=== PATIENT | female | born 2000 | race Caucasian/White ===

== ENCOUNTER 2024-11-01 03:37 | Emergency (ER) | payer OTHER, SELFPAY ==
[2024-11-01] VITALS (9 sets, daily range): BP systolic 107–129; BP diastolic 69–97; PULSE 60–72; TEMP 36.8; O2SAT 98–100; BMI 17.2
--- NOTE | 2024-11-01 04:05 | ECG_ITS ---
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
--- NOTE | 2024-11-01 04:21 | ED_ITS ---
HPI HPI - General Adult General Chief complaint: Fall Stated complaint: FALL, HEAD INJURY Time Seen by Provider: 11/01/24 03:59 Source: patient Mode of arrival: walk-in Limitations: no limitations History of Present Illness HPI narrative: Patient states she got up around 3 in the morning and went to the fridge to drink some pop. She states that she was holding onto the refrigerator when she fell asleep and was found on the floor by her brother. Her head was against the couch and she thinks she may have bumped her head against the couch. She denies any neck pain and has a small bump in the back of her head that she can feel. She has been able to walk normally and she denies chest pain or shortness of breath. Patient does not have any history of seizure disorder. Related Data Home Medications ?Medication ?Instructions ?Recorded ?Confirmed No Known Home Medications 11/01/24 11/01/24 Allergies Allergy/AdvReac Type Severity Reaction Status Date / Time No Known Drug Allergies Allergy Verified 11/01/24 03:48 Opioid HPI Opioid Management Most Recent Opioid Data: Last Pain Scale 7 11/01/24 03:58 11/01/24 Last ED Pain Assessment 11/01/24 03:58 Ur Phencyclidine Scrn Negative (NEGATIVE) 11/01/24 04:14 05/20 Review of Systems ROS Status of ROS 10 or more systems reviewed and unremark able except as noted in history and below [facility] Social History Little interest or pleasure in doing things: not at all Feeling down, depressed, or hopeless: not at all Exam Narrative Exam Narrative: Awake alert, oriented x 3. Speech and mentation are clear. There is no facial asymmetry. Patient moves all extremities actively. Examination of the head revealed a small bump over the left occiput with minimal underlying tenderness. There is no cervical spine tenderness and range of motion of the neck is full and free. Pupils are equal and reactive and EOMs are full. HEENT exam is otherwise normal to inspection. Lungs are clear to auscultation bilaterally with good air entry. Heart has regular rate and rhythm. S1 and S2 are normal. There is no murmur. Abdomen is flat, soft nontender. Bony survey of the extremities is negative for any signs of injury. Constitutional Vital Signs, click to edit/add: Last Vital Signs Temp 98.3 F 11/01/24 03:48 Pulse 60 11/01/24 05:32 Resp 14 11/01/24 05:32 BP 107/69 11/01/24 05:32 Pulse Ox 100 11/01/24 05:32 O2 Del Method Room Air 11/01/24 03:48 Course Vital Signs Vital signs: Vital Signs Temperature 98.3 F 11/01/24 03:48 Pulse Rate 68 11/01/24 03:48 Respiratory Rate 18 11/01/24 03:48 Blood Pressure 129/97 H 11/01/24 03:48 Pulse Oximetry 100 11/01/24 03:48 Oxygen Delivery Method Room Air 11/01/24 03:48 Temperature 98.3 F 11/01/24 03:48 Pulse Rate 60 11/01/24 05:32 Respiratory Rate 14 11/01/24 05:32 Blood Pressure 107/69 11/01/24 05:32 Pulse Oximetry 100 11/01/24 05:32 Oxygen Delivery Method Room Air 11/01/24 03:48 Medical Decision Making [facility] Narrative Medical decision making narrative: Patient presents for evaluation of possible injuries when she fell asleep standing up and then fell and hit her head against the couch. She has a very small bump over the left occiput without any appreciable underlying tenderness. I do not feel that she needs imaging of the head. I was concerned about possible syncope or seizure. There is no indirect evidence to suggest seizure. The rest of her workup is benign. She is advised outpatient primary care follow-up and is to return anytime for worsening symptoms. Differential Diagnosis Differential Diagnosis: Syncope, seizure Lab Data Lab results reviewed: Yes I reviewed the patient's lab results Labs: Lab Results 11/01/24 11/01/24 Range/Units 04:14 04:31 WBC 8.8 (4.0-11.0) 10^3/uL RBC 4.47 (4.20-5.40) 10^6/uL Hgb 13.6 (12.0-16.0) g/dL Hct 39.3 (36.0-48.0) % MCV 87.9 (81.0-99.0) fL MCH 30.4 (26.7-34.0) pg MCHC 34.6 (29.9-35.2) g/dL RDW 11.9 (11.0-15.0) % Plt Count 306 (150-450) 10^3/uL MPV 9.5 (9.5-13.5) fL Neut % (Auto) 65.2 (43.0-75.0) % Lymph % (Auto) 25.5 (20.5-60.0) % Brule % (Auto) 6.4 (1.7-12.0) % Eos % (Auto) 2.5 (0.9-7.0) % Baso % (Auto) 0.2 (0.2-2.0) % Neut # (Auto) 5.7 (1.4-6.5) 10^3/uL Lymph # (Auto) 2.2 (1.2-3.8) 10^3/uL Brule # (Auto) 0.6 (0.3-0.8) 10^3/uL Eos # (Auto) 0.2 (0.0-0.7) 10^3/uL Baso # (Auto) 0.0 (0.0-0.1) 10^3/uL Abs Immat Gran (auto) 0.02 (0.00-0.03) 10^3/uL Imm/Tot Granulo (auto) 0.2 (0.0-0.5) % Sodium 140 (136-145) mmol/L Potassium 3.6 (3.5-5.1) mmol/L Chloride 105 (98-107) mmol/L Carbon Dioxide 26.9 (21.0-32.0) mmol/L Anion Gap 11.7 BUN 13.0 (7.0-18.0) mg/dL Creatinine 0.81 (0.55-1.02) mg/dL Est GFR ( Amer) >60 (>=60 mL/min/1.73m^2) Est GFR (Non-Af Amer) >60 (>=60 mL/min/1.73m^2) BUN/Creatinine Ratio 16.0 Glucose 105 (74-106) mg/dL Lactate 0.8 (0.4-2.0) mmol/L Calcium 8.6 (8.5-10.1) mg/dL Total Bilirubin 0.3 (0.2-1.0) mg/dL AST 14 L (15-37) U/L ALT 14 (14-59) U/L Alkaline Phosphatase 80 (46-116) U/L Troponin I High Sens 5.3 (4.0-51.3) pg/mL Total Protein 7.2 (6.4-8.2) g/dL Albumin 4.0 (3.4-5.0) g/dL Globulin 3.2 g/dL Albumin/Globulin Ratio 1.3 Urine Color Yellow (YELLOW) Urine Clarity Clear (CLEAR) Urine pH 6.0 (5.0-9.0) Ur Specific Lyn[place] >=1.030 A (1.005-1.025) Urine Protein Negative (NEG/TRACE) mg/dL Urine Glucose (UA) Negative (NEGATIVE) mg/dL Urine Ketones Negative (NEGATIVE) mg/dL Urine Occult Blood Negative (NEGATIVE) Urine Nitrite Negative (NEGATIVE) Urine Bilirubin Negative (NEGATIVE) Urine Urobilinogen 1.0 (0.2-1.0) EU/dL Ur Leukocyte Esterase Negative (NEGATIVE) Urine HCG, Qual Negative (NEGATIVE) Urine Opiates Screen Negative (NEGATIVE) Ur Buprenorphine Scrn Negative (NEGATIVE) Ur Oxycodone Screen Negative (NEGATIVE) Urine Methadone Screen Negative (NEGATIVE) Ur Barbiturates Screen Negative (NEGATIVE) U Tricyclic Antidepress Negative (NEGATIVE) Ur Phencyclidine Scrn Negative (NEGATIVE) Ur Amphetamines Screen Negative (NEGATIVE) U Methamphetamines Scrn Negative (NEGATIVE) U Benzodiazepines Scrn Negative (NEGATIVE) Urine Cocaine Screen Negative (NEGATIVE) U Cannabinoids Screen Positive A (NEGATIVE) Ethanol Quant <3 mg/dL ECG Data Attestation: I personally reviewed and interpreted this ECG as follows: Prior ECG tracings: not available for review Interpretation: Sinus rhythm with a rate of 64 bpm. Normal SD interval. Normal QRS duration. Normal QTc interval. Incomplete right bundle branch block pattern. No acute ST elevation. Discharge Plan Discharge Chief Complaint: Fall Clinical Impression: Syncope Patient Disposition: Home, Self-Care Prescriptions / Home Meds: No Action No Known Home Medications Print Language: Icelandic Instructions: Syncope (ED) Additional Instructions: Return for worsening symptoms. Referrals: CAROLYNN CANTU [Primary Care Provider] - 1 week Discharge Date/Time: 11/01/24 05:37
[2024-11-01 04:51] LABS: Basophils Percent Auto 0.2 % (0.2-2.0); Eosinophils Absolute Auto 0.2 10^3/uL (0.0-0.7); Eosinophils Percent Auto 2.5 % (0.9-7.0); Hematocrit 39.3 % (36.0-48.0); Hemoglobin 13.6 g/dL (12.0-16.0); Immature Granulocytes Abs Auto 0.02 10^3/uL (0.00-0.03); Immature Granulocytes Pct Auto 0.2 % (0.0-0.5); Lymphocytes Absolute Auto 2.2 10^3/uL (1.2-3.8); Lymphocytes Percent Auto 25.5 % (20.5-60.0); Mean Corpuscular HGB Conc 34.6 g/dL (29.9-35.2); Mean Corpuscular Hemoglobin 30.4 pg (26.7-34.0); Mean Corpuscular Volume 87.9 fL (81.0-99.0); Mean Platelet Volume 9.5 fL (9.5-13.5); Monocytes Absolute Auto 0.6 10^3/uL (0.3-0.8); Monocytes Percent Auto 6.4 % (1.7-12.0); Neutrophils Absolute Auto 5.7 10^3/uL (1.4-6.5); Neutrophils Percent Auto 65.2 % (43.0-75.0); Platelet Count 306 10^3/uL (150-450); Red Blood Count 4.47 10^6/uL (4.20-5.40); Red Cell Distribution Width 11.9 % (11.0-15.0); White Blood Count 8.8 10^3/uL (4.0-11.0)
[2024-11-01 04:55] LABS: Bilirubin Urine NEGATIVE (NEGATIVE); Blood Urine NEGATIVE (NEGATIVE); Clarity Urine CLEAR (CLEAR); Color Urine YELLOW (YELLOW); Glucose Urine UA NEGATIVE (NEGATIVE); Ketones Urine NEGATIVE (NEGATIVE); Leukocyte Esterase Urine NEGATIVE (NEGATIVE); Nitrite Urine NEGATIVE (NEGATIVE); Protein Urine NEGATIVE (NEG/TRACE); Specific Gravity Urine >=1.030 (1.005-1.025)
[2024-11-01 05:01] LABS: Urine Microscopic Indicated NO
[2024-11-01 05:05] LABS: Amphetamine Screen Urine NEGATIVE (NEGATIVE); Barbiturates Screen Urine NEGATIVE (NEGATIVE); Benzodiazepines Screen Urine NEGATIVE (NEGATIVE); Buprenorphine Screen Urine NEGATIVE (NEGATIVE); Cannabinoid Screen Urine POSITIVE (NEGATIVE); Cocaine Screen Urine NEGATIVE (NEGATIVE); Methadone Screen Urine NEGATIVE (NEGATIVE); Methamphetamines Screen Urine NEGATIVE (NEGATIVE); Opiate Screen Urine NEGATIVE (NEGATIVE); Oxycodone Screen Urine NEGATIVE (NEGATIVE); Phencyclidine Screen Urine NEGATIVE (NEGATIVE); Tricyclic Antidepressant Urine NEGATIVE (NEGATIVE)
[2024-11-01 05:06] LABS: HCG Qualitative Urine* NEGATIVE (NEGATIVE); Internal Control Within Normal Limits
[2024-11-01 05:13] LABS: Alanine Aminotransferase 14 U/L (14-59); Albumin Globulin Ratio 1.3; Alkaline Phosphatase 80 U/L (46-116); Anion Gap 11.7; Aspartate Amino Transferase 14 U/L (15-37); Bilirubin Total 0.3 mg/dL (0.2-1.0); Calcium 8.6 mg/dL (8.5-10.1); Carbon Dioxide 26.9 mmol/L (21.0-32.0); Chloride 105 mmol/L (98-107); Estimated GFR (African America >60 (>=60 mL/min/1.73m^2); Estimated GFR (Non-African Ame >60 (>=60 mL/min/1.73m^2); Globulin 3.2 g/dL; Glucose 105 mg/dL (74-106); Lactate/Lactic Acid 0.8 mmol/L (0.4-2.0); Potassium 3.6 mmol/L (3.5-5.1); Sodium 140 mmol/L (136-145); Total Protein 7.2 g/dL (6.4-8.2); Troponin I High Sensitivity 5.3 pg/mL (4.0-51.3)
[2024-11-01 05:15] LABS: Ethanol <3 mg/dL
--- NOTE | 2024-11-01 05:35 | PC.NURSE ---
i gave this patient verbal and paper discharge orders and this patient voices yes to understanding these. at time of discharge this patient voices no concerns and shows no signs of distress
== END 2024-11-01 05:37 | disposition home or self-care (01) ==
PROVIDERS: Emergency Provider Emergency Medicine; PCP Family Medicine
DX: R55 Syncope and collapse (principal)
CPT/HCPCS: 36415; 80053; 80307; 80320; 81003; 83605; 84484; 84703; 85025; 93005; 99284